=== PATIENT | male | born 1965 | race Two or more races ===

== ENCOUNTER 2020-03-26 08:53 | Emergency (ER) | payer OTHER ==
[~2020-03-26] VITALS: Ht 180.3 cm; Wt 136.1 kg
[2020-03-26] MEDS ORDERED: LISINOPRIL5 MG PO (09:29)
[2020-03-26] MEDS ORDERED: SIMVASTATIN10 MG PO (09:29)
== END 2020-03-26 10:36 | disposition home or self-care (01) ==
LOC: ER 08:53
DX: T15.82XA Foreign body in other and multiple parts of external eye, left eye, initial encounter (principal); W45.8XXA Other foreign body or object entering through skin, initial encounter; Y93.89 Activity, other specified; Y92.89 Other specified places as the place of occurrence of the external cause; Y99.8 Other external cause status